=== PATIENT | male | born 1960 | race Caucasian/White ===

== ENCOUNTER → 2021-07-17 10:46 | Outpatient (CLI) | payer BC, SELFPAY ==
[2021-07-17 14:57] LABS: COVID19 -Nasal RAPID Negative (Negative)
== END ==
PROVIDERS: PCP Family Medicine; Referring Provider Physician Assistant; Visit Provider Physician Assistant
DX: Z01.812 Encounter for preprocedural laboratory examination (principal); Z20.822 Contact with and (suspected) exposure to COVID-19
CPT/HCPCS: 87635

== ENCOUNTER 2021-07-18 08:53 | Day surgery (SDC) | payer BC, SELFPAY ==
[2021-07-14 08:26] VITALS: BMI 30.6
[2021-07-18] VITALS (9 sets, daily range): BP systolic 109–153; BP diastolic 63–94; PULSE 64–100; RESP 12–16; TEMP 35.6–36.4; O2SAT 97–100; BMI 30.6
[2021-07-18] MEDS: LACTATED RINGERS 1,000 ML 42 ML IV ×2 (09:24→12:43)
[2021-07-18] MEDS: ACETAMINOPHEN 325 MG TABLET 975 MG PO (09:29)
[2021-07-18] MEDS: PREGABALIN 75 MG CAPSULE PO (09:29)
[2021-07-18] MEDS: CELECOXIB 200 MG CAPSULE PO (09:30)
[2021-07-18] MEDS: VANCOMYCIN 1,000 MG/200 ML PIGGYBACK 200 MG IV (09:52)
--- NOTE | 2021-07-18 10:34 | P.OP_ITS ---
Operative Date/Time/Diagnoses Date of procedure: 07/18/21 Time of procedure: 11:20 Pre-op diagnosis: left hip OA Post-op diagnosis: same Procedure & Clinicians Procedure: Left total hip arthroplasty anterior approach Same procedure as scheduled: Yes Indications: The patient has had progressively worsening left hip pain with radiographic camacho ges consistent with arthritis. Non-operative management has failed and the patient has requested total hip replacement. The risks, benefits and alternatives to surgery were discussed with the patient prior to proceeding. Risks discussed included, but were not limited to, failure to relieve pain, leg length discrepancy, dislocation, stiffness, infection, nerve damage, deep venous thrombosis, pulmonary embolism, stroke, coma, heart attack, permanent paralysis and , as well as the potential need for eventual revision of the prosthetic. Surgeon: Rosario Quiroga Director Of The [employer] Facility: [facility] Anesthesia Type: General and Spinal Operative Notes Findings: Severe left hip osteoarthritis, adequate stability, good bone Closure Type: primary Specimen(s): none sent Prosthetic devices, grafts, tissues, transplants, or devices: R3 size 62 cup, Quiroga and nephew, one 6.5 mm screw, size 7 standard offset anthology, 36 +4 Oxinium head, neutral poly liner Estimated Blood Loss (mL): 250 Blood products transfused: none Procedure in detail: The patient was brought to the operating room. Patient was carefully positioned in the supine position. Time-out was performed and antibiotics were given. Anesthesia was induced. He was positioned in the OR on the table in order to allow hyperextension of the hip. The left lower extremity was prepped and draped in a standard sterile fashion. An anterior left hip incision was made 1 fingerbreadth lateral to the anterior superior iliac spine and extended distally towards the greater trochanter. Dissection was carried out through skin and subcutaneous tissues. Superficial hemostasis was achieved. The fascia over the tensor fascia myra was defined and incised with a knife. Two Allis clamps were used to grasp the fascia. Tensor fascia myra was retracted laterally. A gelpi retractor was placed. Dissection was carried out down along the neck. The circumflex vessels were carefully identified and cauterized with the Aqua Mantis. There was good visualization of the femoral neck. A Cobra was placed superior to the neck and the gluteus fibers were carefully stripped from that superior aspect of the capsule. A 2nd retractor was placed along the inferior aspect of the neck. The rectus insertion along the capsule was partially released. A 3rd retractor that was then gently placed over the rim of the acetabulum under the rectus. Capsule was carefully incised and released from the intertrochanteric line circumferentially superior to the mid sagittal line and inferiorly to the mid sagittal line until the lesser trochanter was palpable. A tag stitch was placed both in the superior and inferior limb of the capsular insertion. Along the acetabulum capsule was also released up to the mid sagittal 12:00 position. A portion of the labrum was resected. A saw was used to perform an osteotomy at the level of the intertrochanteric line and the junction of the superior femoral neck leaving approximately 1 finger breath of residual inferior neck above the lesser trochanter. A 2nd cut was made along the femoral neck at the base of the head and a napkin ring of neck was removed. Corkscrew was placed in the femoral head and the head was removed with some difficulty. It was a very tight joint with some component of protrusio and about a 60 mm head. Retractors were then repositioned around the acetabulum. Residual labrum was resected and additional osteophytes were removed. A reamer that was 4 mm below the templated size was placed by hand in the acetabulum and it was reamed to centralize the acetabulum. It was then reamed up to 2 under the templated size and fluoroscopy was brought in to confirm the position of the reaming and depth of reaming. I reamed 1 under the anticipated size. A trial cup was placed and noted that it was appropriately sized and fluoroscopy confirmed position and depth. The component was open and inserted with some difficulty fluoroscopic imaging was used to confirm that the cup had been adequately seated and was well positioned. It was further stabilized with a s sury screw. Neutral poly liner was placed. The cup was tested and noted to be stable. Attention was then directed to the femur. The femur was gently hyperextended additional capsular release was performed as needed in order to allow adequate visualization of the proximal femur with elevation of the femur. It was very tight and the femur was meticulously mobilized. It Was placed in a hyperexte nded slightly adducted position with maximum external rotation. Box osteotome was used to check for any residual neck as well as sclerotic bone along the trochanter. Quilcene pepper was placed in the femur. Additional broaching was performed. Canal finder was used to determine the alignment of the canal and position. Size 1 broach was placed. The canal was then appropriately broached up to the templated size as long as there was adequate stability of the broach and serial advancement of the broach without excessive impingement. Specific attention was directed at avoiding varus attempting to direct the distal aspect of the broach more anteriorly and avoiding excessive anteversion. Trial reduction showed acceptable range of motion, good stability, no posterior impingement, buddhist of leg length and appropriate lateral shuck. I also hyperflexed the hip and checked that there was no impingement anteriorly and there was good stability with flexion, adduction and internal rotation. Marcaine and Exparel were injected. The stem was placed without difficulty. Repeat trial reduction and x-ray showed acceptable overall position, length, and no evidence of the femoral fracture. Final head was placed. Wound was meticulously irrigated with normal saline. The hip was reduced and additional Exparel and Marcaine were injected. The capsule was closed with interrupted nonabsorbable sutures. The fascia of the tensor was closed with interrupted and running Vicryl. No drain was placed. Any tensor fascia myra muscle that appeared to be contused or injured which was a minimal amount was carefully resected. Capsule around the tensor was injected with Exparel and Marcaine. The skin was closed with barbed stitches for the subcutaneous tissue and skin. We also used surgical glue. The wound was dressed sterilely. Brief Betadine soak was also used and was meticulously irrigated with normal saline. Patient was transferred to recovery room in satisfactory condition. Complications: none Post-operative Condition: stable Disposition: Acute Care Plan for aftercare: The patient will be maintained on a standard total hip replacement protocol with weight bearing as tolerated and anterior hip precautions. The patient will receive Aspirin and sequential compression devices for DVT prophylaxis. The patient will be discharged home when safe for the home environment.
--- NOTE | 2021-07-18 10:34 | PM.PREOP ---
Pre-operative Note COVID-19 COVID-19 status: Negative Interval Note History & Physical reviewed/Exam performed by Physician: Yes Changes to H&P: No
--- NOTE | 2021-07-18 11:00 | DI.RAD.S_ITS ---
PROCEDURE: XR HIP W PEL IF DONE LT 2V INDICATIONS: INNER OP TECHNIQUE: 2 view(s) of the hip acquired. COMPARISON: [facility] [place], [place], XR PELVIS WITH LATERAL HIP LEFT, 08/22/2020, 12:00. FINDINGS: Bones: Patient is status post left hip arthroplasty, with hardware components in expected positions. The hip joint appears congruent. The visualized bony structures appear intact. Soft tissues: Overlying postoperative changes are noted. No suspicious soft tissue densities. IMPRESSION: Expected intraoperative appearance and alignment of left hip arthroplasty. Dictated by: Rufino Barriga RRA Interpreted: Pao Rudolph MD on 07/18/2021 at 15:13 Transcribed by: CHRISTIANO on 07/18/2021 at 15:14 Approved by: Pao Rudolph MD, PhD on 07/18/2021 at 18:05
--- NOTE | 2021-07-18 11:00 | DI.RAD.S_ITS ---
PROCEDURE: XR HIP W PEL IF DONE LT 2V INDICATIONS: POST OP LEFT HIP TECHNIQUE: 2 view(s) of the hip acquired. COMPARISON: [facility], [place], XR HIP W PEL IF DONE LT 2V, 07/18/2021, 10:29. FINDINGS: Bones: Patient is status post left hip arthroplasty, with hardware components in expected positions. The hip joint appears congruent. The visualized bony structures appear intact. Mild joint narrowing with periarticular osteophyte formation of the right hip joint. Soft tissues: Overlying postoperative changes are noted. No suspicious soft tissue densities. IMPRESSION: Expected postoperative appearance of left hip arthroplasty. Dictated by: Rufino Barriga RRA Interpreted: Pao Rudolph MD on 07/18/2021 at 15:38 Transcribed by: CHRISTIANO on 07/18/2021 at 15:38 Approved by: Pao Rudolph MD, PhD on 07/18/2021 at 18:06
[2021-07-18] MEDS: CEFAZOLIN 1 GM VIAL 2 GM IV ×2 (11:05→19:05)
[2021-07-18] MEDS: TRANEXAMIC ACID 1,000 MG VIAL 1000 MG INJ ×2 (11:16→14:37)
--- NOTE | 2021-07-18 11:48 | SUR.OPER ---
Supine on padded [place] table with bilateral legs secured in padded positioning boots and suspended in positioning spars, operative leg in traction per surgeon. Head on one pillow. Arm on non-operative side secured on padded armboard <90 degrees abduction. Arm on operative side padded and resting across chest then secured with tape over sheet. Padded perineal post in place per surgeon.
[2021-07-18] MEDS: BUPIVACAINE 0.25% (PF) 60 ML, EPINEPHrine 0.3 MG INJ (11:54)
[2021-07-18] MEDS: BUPIVACAINE LIPOSOME 266 MG/20 ML VIAL INJ (11:55)
[2021-07-18] MEDS: fentaNYL 100 MCG/2 ML INJ IV ×2 (15:15→15:24)
[2021-07-18] MEDS: OXYCODONE IR 5 MG TABLET 10 MG PO (16:08)
[2021-07-18] MEDS: LACTATED RINGERS 1,000 ML 125 ML IV (16:22)
[2021-07-18] MEDS: HYDROMORPHONE 4 MG TABLET PO (16:46)
[2021-07-18] MEDS: KETOROLAC 30 MG/ML VIAL IV (16:50)
[2021-07-18] MEDS: OXYCODONE IR 5 MG TABLET PO (19:02)
--- NOTE | 2021-07-18 19:19 | PC.NURSE ---
pt recieved from PACU at 1545 A&Ox3. reporting pain increased at 7/10. Pt given 10 mg oxycodone however upon reassessment pain level increasing to 9/10. MD notified and recieved one time order for toradol 30 mg and po dilauded 4mg. Pain controlled more effectively to 3-5/10. He tolerates general diet, voiding and ambulating around nursing unit following hip precautions. He continues to verbalize how determined he is to discharge this evening. MD at bedside evaluating patient this evening clearing him for discharge home. RN gives final antibiotic IV. reviewed discharge instructions and he acknowledged understanding of incision care, s/sx of infection, worsening symptoms, as well as activity restrictions, medications and follow up appointments. He is escorted by RN to private vehicle with in private vehicle with all of his belongings and prescriptions for discharge home.
== END 2021-07-18 19:20 | disposition home or self-care (01) ==
LOC: OR 08:54 → AC 08:55
PROVIDERS: PCP Family Medicine; Referring Provider Orthopaedic Surgery; Visit Provider Orthopaedic Surgery
PROC: (CPT 27130; principal; 2021-07-18 10:45)
DX: M16.12 Unilateral primary osteoarthritis, left hip (principal); E66.9 Obesity, unspecified; G47.33 Obstructive sleep apnea (adult) (pediatric); Z68.29 Body mass index [BMI] 29.0-29.9, adult
CPT/HCPCS: 27130; 73502; 76000; C1776; C9290; J0171; J0690; J1885; J2250; J2704; J3010